=== PATIENT | female | born 1980 | race Caucasian/White ===

== ENCOUNTER 2016-09-10 19:28 | Emergency (ER) | payer MEDICAID, OTHER ==
[2016-09-10 19:48] VITALS: BP 107/69
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
== END 2016-09-10 20:50 | disposition home or self-care (01) ==
LOC: UCEAST 19:28
DX: S90.31XA Contusion of right foot, initial encounter (principal); V43.52XA Car driver injured in collision with other type car in traffic accident, initial encounter; J45.909 Unspecified asthma, uncomplicated
CPT/HCPCS: 99201; G0463

== ENCOUNTER 2016-10-01 10:26 | Emergency (ER) | payer OTHER, MEDICAID ==
[2016-10-01] MEDS ORDERED: Ketorolac INJ* 60 MG/2 ML VIAL IM ONE (11:43)
--- NOTE | 2016-10-01 11:50 | UC ---
Back Pain HPI - HPI Summary HPI Summary: Had a baby 7 days ago at [facility] no pain meds due to rapid labor. No has back pain radiating down both legs, also some pain in her neck, Lochia is small no odor, no lower abdomen pain--Spoke to her doctor who felt this is not [employer] related and so she came here - History of Current Complaint Chief Complaint: UCBackPain Stated Complaint: LOWER BACK PAIN-HAD BABY 5 DAYS Time Seen by Provider: 10/01/16 11:29 Hx Obtained From: Patient ?: No Onset/Duration: Gradual Onset - 2, Lasting Days, Still Present Timing: Constant Severity Initially: Moderate Severity Currently: Moderate Pain Intensity: 6 Pain Scale Used: 0-10 Numeric Back Pain: Is Diffuse - lwer back in to buttocks Also some neck pain Character: Aching, Stiffness Aggravating: Movement Alleviating: Nothing - took 4 aleve and 6 ibuprofen yesterday with out relief Associated Signs And Symptoms: Positive: Negative - Allergies/Home Medications Allergies/Adverse Reactions: Allergies Allergy/AdvReac Type Severity Reaction Status Date / Time No Known Allergies Allergy Verified 09/10/16 19:41 PMH/Surg Hx/FS Hx/Imm Hx Previously Healthy: Yes - 7 days post from a - Surgical History Surgical History: None - Family History Known Family History: Negative: Cardiac Disease, Hypertension, Diabetes - Social History Occupation: Unemployed Alcohol Use: None Substance Use Type: None Smoking Status (MU): Never Smoked Tobacco Review of Systems Constitutional: Chills Skin: Negative Eyes: Negative ENT: Negative Respiratory: Negative Cardiovascular: Negative Gastrointestinal: Negative Genitourinary: Negative Motor: Negative Neurovascular: Negative Musculoskeletal: Arthralgia - low back pain, Myalgia - low back pain Neurological: Negative Psychological: Negative All Other Systems Reviewed And Are Negative: Yes Physical Exam Triage Information Reviewed: Yes Appearance: Well-Appearing, No Pain Distress, Well-Nourished Vital Signs: Initial Vital Signs Temp 97.8 F 10/01/16 10:52 Pulse 75 10/01/16 10:52 Resp 18 10/01/16 10:52 BP 108/62 10/01/16 10:52 Pulse Ox 100 10/01/16 10:52 Vital Signs Reviewed: Yes Eye Exam: Normal Eyes: Positive: Conjunctiva Clear ENT Exam: Normal ENT: Positive: Normal ENT inspection, Hearing grossly normal, Pharynx normal, TMs normal. Negative: Nasal congestion, Nasal drainage, Tonsillar swelling, Tonsillar exudate, Trismus, Muffled/hoarse voice Dental Exam: Normal Neck exam: Normal Neck: Positive: Supple, Nontender Respiratory Exam: Normal Respiratory: Positive: Chest non-tender, Lungs clear, Normal breath sounds, No respiratory distress, No accessory muscle use Cardiovascular Exam: Normal Cardiovascular: Positive: RRR, No Murmur, Pulses Normal, Brisk Capillary Refill Abdominal Exam: Normal Abdomen Description: Positive: Nontender, No Organomegaly, Soft. Negative: CVA Tenderness (R), CVA Tenderness (L) Bowel Sounds: Positive: Present Musculoskeletal Exam: Normal Musculoskeletal: Positive: Strength Intact, ROM Intact, No Edema Neurological Exam: Normal Neurological: Positive: Alert, Muscle Tone Normal Psychological Exam: Normal Psychological: Positive: Normal Response To Family Skin Exam: Normal Re-Evaluation - Re-Evaluation First Eval Change: Improved - Some pain relief with Toradal---- Back Pain Course/Dx - Course Course Of Treatment: Mobic, Flexeril, warm compress, culture urine, follow this week with pcp - Differential Dx/Diagnosis Differential Diagnosis/HQI/PQRI: Herniated Disc, Renal Colic, Strain, Sprain Provider Diagnoses: MUscle strain low back - Physician Notifications Discussed Patient Care With: Dr. Mejia Time Discussed With Above Provider: 11:30 Discharge - Discharge Plan Condition: Stable Disposition: HOME Prescriptions: Cyclobenzaprine TAB* [Flexeril 10 MG TAB*] 10 mg PO TID PRN #15 tab PRN Reason: mucle pain Meloxicam(NF) [Mobic(NF)] 7.5 mg PO DAILY PRN #40 tab PRN Reason: pain Patient Education Materials: Acute Low Back Pain (ED), Core Strengthening Exercises (GEN), Lower Back Exercises (ED) Referrals: No Primary Care Phys,NOPCP [Primary Care Provider] - Additional Instructions: Follow with your primary care provider in [place] in 5-7 days. Follow immediately / go to emergency department for increasing pain, weakness, fever
[2016-10-01 12:49] VITALS: BP 112/71
== END 2016-10-01 11:35 | disposition home or self-care (01) ==
LOC: UCEAST 10:26
DX: S39.012A Strain of muscle, fascia and tendon of lower back, initial encounter (principal); X58.XXXA Exposure to other specified factors, initial encounter
CPT/HCPCS: 81003; 87086; 96372; 99212; G0463; J1885

== ENCOUNTER 2016-12-19 20:13 | Emergency (ER) | payer MEDICAID, OTHER ==
[2016-12-19 20:25] VITALS: BP 118/72
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
--- NOTE | 2016-12-19 21:03 | RAD ---
HISTORY: Left ankle pain and swelling COMPARISONS: None VIEWS: 3, Frontal, lateral, and oblique views of the left ankle FINDINGS: BONE DENSITY: Normal. BONES: There is no displaced fracture. JOINTS: There is no arthropathy. ALIGNMENT: There is no dislocation. SOFT TISSUES: Unremarkable. OTHER FINDINGS: None. IMPRESSION: NO ACUTE OSSEOUS INJURY. IF SYMPTOMS PERSIST, RECOMMEND REPEAT IMAGING.
--- NOTE | 2016-12-22 18:34 | UC ---
Progress - Progress Note Progress Note: INITIAL LYME SCREEN POSITIVE. AWAIT CONFIRMATORY WESTERN BLOT. MAY NEED TREATMENT BASED ON THOSE RESULTS. - SONDRA REDMOND MD
[2016-12-22 20:35] LABS: Lyme Disease IgG Ab WB Negative (Negative)
--- NOTE | 2016-12-23 08:43 | UC ---
Progress - Progress Note Progress Note: INITIAL LYME SCREEN POSITIVE. AWAIT CONFIRMATORY WESTERN BLOT. MAY NEED TREATMENT BASED ON THOSE RESULTS. - SONDRA REDMOND MD 12/23/16 09:37am - called pt re Lyme serology (positive) and Western blot (noted in [employer]). Called pt at home # listed, left message for her to call back. There is no pcp on file. I called work number, no extension available. We will mail results to pt., via certified mail.
== END 2016-12-19 21:12 | disposition home or self-care (01) ==
LOC: UCEAST 20:13
DX: M70.872 Other soft tissue disorders related to use, overuse and pressure, left ankle and foot (principal); Y93.9 Activity, unspecified; J45.909 Unspecified asthma, uncomplicated
CPT/HCPCS: 86617; 86618; 99212; G0463

== ENCOUNTER 2017-06-04 17:21 | Emergency (ER) | payer OTHER ==
--- NOTE | 2017-06-04 20:38 | UC ---
Respiratory Complaint HPI - HPI Summary HPI Summary: c/o cough, nasal congestion for past 2 days and since yesterday, loss of voice. Her child is ill with a virus. Denies fever and states she has some facial pressure under eyes. sometimes with d/c - History of Current Complaint Chief Complaint: UCRespiratory Stated Complaint: CONGESTED, COUGH, SORE THROAT Time Seen by Provider: 06/04/17 20:23 Hx Obtained From: Patient Hx Last Menstrual Period: 05/20 ?: No Onset/Duration: Gradual Onset, Lasting Days Timing: Constant Severity Initially: Mild Severity Currently: Mild Pain Intensity: 4 Character: Cough: Nonproductive Aggravating Factors: Nothing Alleviating Factors: Nothing Associated Signs And Symptoms: Positive: Nasal Congestion, Hoarseness, Sinus Discomfort Related History: Seasonal Allergies - Risk Factors Pulmonary Embolism Risk Factors: Negative Cardiac Risk Factors: Negative Pseudomonas Risk Factors: Negative Tuberculosis Risk Factors: Negative - Allergies/Home Medications Allergies/Adverse Reactions: Allergies Allergy/AdvReac Type Severity Reaction Status Date / Time No Known Allergies Allergy Verified 12/19/16 20:20 Home Medications: Home Medications Bupropion HCl [Wellbutrin Sr] 300 mg PO 06/04/17 [History] Cetirizine* [ZyrTEC 10 MG TAB*] 10 mg PO DAILY 06/04/17 [History Confirmed 06/04] Escitalopram (NF) [Lexapro 5 mg (NF)] 5 mg PO DAILY 06/04/17 [History Confirmed 06/04/17] PMH/Surg Hx/FS Hx/Imm Hx Previously Healthy: Yes - Surgical History Surgical History: Yes Surgery Procedure, Year, and Place: tubal ligation 2016 - Family History Known Family History: Negative: Cardiac Disease, Hypertension, Diabetes - Social History Alcohol Use: None Substance Use Type: None Smoking Status (MU): Never Smoked Tobacco Review of Systems Constitutional: Negative ENT: Nasal Discharge, Sinus Congestion Respiratory: Cough Cardiovascular: Negative All Other Systems Reviewed And Are Negative: Yes Physical Exam Triage Information Reviewed: Yes Appearance: Well-Appearing Vital Signs: Initial Vital Signs Temp 97.6 F 06/04/17 18:19 Pulse 83 06/04/17 18:19 Resp 18 06/04/17 18:19 BP 119/63 06/04/17 18:19 Pulse Ox 98 06/04/17 18:19 Vital Signs Reviewed: Yes Eye Exam: Normal ENT Exam: Normal Dental Exam: Normal Neck exam: Normal Respiratory Exam: Normal Cardiovascular Exam: Normal UC Diagnostic Evaluation - Laboratory O2 Sat by Pulse Oximetry: 98 Respiratory Course/Dx - Course Course Of Treatment: agressive hydration, avoid caffeine, saline gargles, rest voice. - Differential Dx/Diagnosis Provider Diagnoses: viral URI. laryngitis Discharge - Discharge Plan Condition: Stable Disposition: HOME Patient Education Materials: Laryngitis (ED), Viral Syndrome (ED) Referrals: No Primary Care Phys,NOPCP [Primary Care Provider] -
[2017-06-04 20:46] VITALS: BP 101/69
== END 2017-06-04 20:43 | disposition home or self-care (01) ==
LOC: UCEAST 17:21
DX: J06.9 Acute upper respiratory infection, unspecified (principal); B34.9 Viral infection, unspecified
CPT/HCPCS: 99212; G0463

== ENCOUNTER 2018-06-30 11:54 | Emergency (ER) | payer OTHER ==
[2018-06-30 12:57] VITALS: BP 116/67
--- NOTE | 2018-06-30 13:02 | UC ---
FLU HPI - HPI Summary HPI Summary: 3 days of body aches, fever reaching 104F at home. flu + sick contact at home.nothing makes it better/worse. - History of Current Complaint Chief Complaint: UCGeneralIllness Stated Complaint: FEVER COUGH Time Seen by Provider: 06/30/18 12:58 Hx Last Menstrual Period: 05/20 Pain Intensity: 6 Pain Scale Used: 0-10 Numeric Related Hx: Possible Flu/Infectious Exposure - Allergy/Home Medications Allergies/Adverse Reactions: Allergies Allergy/AdvReac Type Severity Reaction Status Date / Time No Known Allergies Allergy Verified 06/30/18 12:50 Home Medications: Home Medications Naproxen Sodium [Aleve] 220 mg PO ONCE 06/30/18 [History Confirmed 06/30/18] PMH/Surg Hx/FS Hx/Imm Hx Previously Healthy: Yes - Surgical History Surgical History: Yes Surgery Procedure, Year, and Place: partial hysterectomy (fallopian tubes removed) 2016 - Family History Known Family History: Negative: Cardiac Disease, Hypertension, Diabetes - Social History Alcohol Use: None Substance Use Type: None Smoking Status (MU): Never Smoked Tobacco - Immunization History Most Recent Influenza Vaccination: 2018 Review of Systems All Other Systems Reviewed And Are Negative: Yes Constitutional: Positive: Fever, Chills, Fatigue Skin: Negative: Rash ENT: Positive: Sore Throat, Sinus Congestion Respiratory: Positive: Cough. Negative: Shortness Of Breath Neurological: Positive: Headache. Negative: Weakness Physical Exam Triage Information Reviewed: Yes Appearance: Well-Appearing Vital Signs: Initial Vital Signs Temp 100.4 F 06/30/18 12:53 Pulse 109 06/30/18 12:53 Resp 22 06/30/18 12:53 BP 116/67 06/30/18 12:53 Pulse Ox 98 06/30/18 12:53 Vital Signs Reviewed: Yes Eyes: Positive: Conjunctiva Clear ENT: Positive: Pharynx normal, TMs normal, Uvula midline Neck exam: Normal Neck: Positive: Supple, Nontender, No Lymphadenopathy. Negative: Nuchal Rigidity Respiratory Exam: Normal Cardiovascular Exam: Normal Neurological: Positive: Alert Skin: Negative: Rashes Flu Course/Dx - Course Course Of Treatment: flu like illness x 4 days w/ a +flu expsore at home. low grade fever but otherwise vitals good. did get flu shot this yr. rapid flu + today. supportive care discussed and she wanted tamiflu. her symptoms are just shy of the recommended days but obliged. we discussed side effects of tamiflu and effectiveness. - Differential Dx/Diagnosis Differential Diagnosis/HQI/PQRI: Influenza, Upper Respiratory Infection Provider Diagnosis: Influenza Discharge - Sign-Out/Discharge Documenting (check all that apply): Patient Departure All imaging exams completed and their final reports reviewed: No Studies - Discharge Plan Condition: Good Disposition: HOME Prescriptions: Oseltamivir SUSP 75 MG dose* [Tamiflu SUSP 75 MG dose*] 75 mg PO BID 5 Days #10 oral.syrin Patient Education Materials: Influenza (ED) Forms: *Work Release Referrals: No Primary Care Phys,NOPCP [Primary Care Provider] - Additional Instructions: if not improving please follow up with primary care. - Billing Disposition and Condition Condition: GOOD Disposition: Home
[2018-06-30 13:24] LABS: Influenza A Molecular POSITIVE (Negative)
== END 2018-06-30 13:39 | disposition home or self-care (01) ==
LOC: UCEAST 11:54
DX: J11.1 Influenza due to unidentified influenza virus with other respiratory manifestations (principal)
CPT/HCPCS: 99212; G0463

== ENCOUNTER 2018-07-25 15:16 | Emergency (ER) | payer OTHER ==
[2018-07-25 15:25] VITALS: BP 119/56
--- NOTE | 2018-07-25 15:33 | UC ---
Complaint Female HPI - HPI Summary HPI Summary: 37 y/o female presents to the urgent care c/o vaginal itching w/ a white vaginal discharge for the past 2 weeks. Pt has use OTC meds with no improvement. Pt denies Hx of STD's. LMP: 07/01/2018. Pt denies taken any antibiotic recently. Pt has mild frequency on urination, but denies pelvic pain , lower back pain , flank pain or burning on urination. Pt also denies fever, SOB, chest pain, abdominal pain, N/v/d. - History Of Current Complaint Chief Complaint: UCGU Stated Complaint: PERSONAL Time Seen by Provider: 07/25/18 15:31 Hx Obtained From: Patient Hx Last Menstrual Period: 07/02/18 ?: No Onset/Duration: Gradual Onset, Lasting Weeks - 2 weeks, Still Present Timing: Constant Severity Initially: Mild Severity Currently: Moderate Pain Intensity: 0 Pain Scale Used: 0-10 Numeric Character: Not Applicable Aggravating Factor(s): [place], Urination Associated Signs And Symptoms: Positive: Vaginal Discharge. Negative: Fever, Back Pain, Nausea, Vomiting(# Of Episodes =), Genital Swelling, Genital Blisters - Risk Factors Ectopic Risk Factor: Negative Ovarian Torsion Risk Factor: Negative - Allergies/Home Medications Allergies/Adverse Reactions: Allergies Allergy/AdvReac Type Severity Reaction Status Date / Time No Known Allergies Allergy Verified 07/25/18 15:26 PMH/Surg Hx/FS Hx/Imm Hx Previously Healthy: Yes Respiratory History: Asthma - Surgical History Surgical History: Yes Surgery Procedure, Year, and Place: partial hysterectomy (fallopian tubes removed) 2017 - Family History Known Family History: Positive: Cardiac Disease, Hypertension, Diabetes - Social History Occupation: Employed Full-time Lives: With Family Alcohol Use: None Substance Use Type: None Smoking Status (MU): Never Smoked Tobacco - Immunization History Most Recent Influenza Vaccination: 2018 Review of Systems All Other Systems Reviewed And Are Negative: Yes Constitutional: Positive: Negative Skin: Positive: Negative Eyes: Positive: Negative ENT: Positive: Negative Respiratory: Positive: Negative Cardiovascular: Positive: Negative Genitourinary: Positive: Frequency, Vaginal/Penile Itching, Vaginal/Penile Discharge - white Motor: Positive: Negative Neurovascular: Positive: Negative Musculoskeletal: Positive: Negative Neurological: Positive: Negative Psychological: Positive: Negative Is Patient Immunocompromised?: No Physical Exam - Summary Physical Exam Summary: Vital signs: reviewed General: well developed, well nourished female sitting in the examining table w /o any acute distress. Head: Normocephalic, no lesions. Eyes: PERRLA, EOM's full, conjunctiva clear, fundi grossly normal. Ears: EAC's clear, TM's normal. Nose: Mucosa normal, no obstruction. Throat: Clear, no exudates, no lesions. Neck: Supple, no masses, no thyromegaly, no bruits. Chest: Lungs clear, no rales, no rhonchi, no wheezes. Heart: RR, no murmurs, no rubs, no gallops. Abdomen: Soft, no tenderness, no masses, BS normal. Pelvic: I was assisted by nurse Karina: External genitalia within normal limits. There is no lesions there is no masses noted. Speculum exam: The vaginal bettencourt are within normal limits w/ cottage cheese vaginal discharge, no the lesions or rashes. The cervix is closed with no lesions or masses. There is no CMT's, and no adnexal masses. Sample sent to Lab for G/C and Affirm panel. Rectal: No lesions, no hemorrhoids, Back: Normal curvature, no tenderness. Extremities: FROM, no deformities, no edema, no erythema. Neuro: Physiological, no localizing findings. Skin: Normal, no rashes, no lesions noted. Triage Information Reviewed: Yes Vital Signs: Initial Vital Signs Temp 98 F 07/25/18 15:22 Pulse 88 07/25/18 15:22 Resp 18 07/25/18 15:22 BP 119/56 07/25/18 15:22 Pulse Ox 99 07/25/18 15:22 Complaint Female Dx - Course Course Of Treatment: 37 y/o female presents to the urgent care c/o vaginal itching w/ a white vaginal discharge for the past 2 weeks. Pt has use OTC meds with no improvement. Pt denies Hx of STD's. LMP: 07/01/2018. Pt denies taken any antibiotic recently. Pt has mild frequency on urination, but denies pelvic pain , lower back pain , flank pain or burning on urination. Pt also denies fever, SOB, chest pain, abdominal pain, N/v/d. Hx obtained. Pelvic exam I was assisted by nurse Collins.Pt w/ a white cottage cheese vaginal discharge on pelvic examination. Pt w/ probably Vulvovaginal Candidiasis. Pt Rx Clotrimazole vaginal cream as directed below.Sample sent to Lab for Affirm and GC/chlamydia to screen for STD's and to r/o any abnormality . pt will be notified of result. UA: negative. Advised to f/u her appt w/ TOOL ROOM SUPERVISOR or PCP if not improvement of symptoms.D/C instructions explained. Pt understood and agreed with plan of care. - Differential Dx/Diagnosis Differential Diagnosis/HQI/PQRI: Cervicitis, Pelvic Inflammatory Disease, Renal Colic, Sexually Transmitted Disease, Ureteral Stone, Urinary Tract Infection Provider Diagnosis: Vulvovaginal candidiasis, Screening for STD (sexually transmitted disease) Discharge - Sign-Out/Discharge Documenting (check all that apply): Patient Departure - d/c home All imaging exams completed and their final reports reviewed: No Studies - Discharge Plan Condition: Stable Disposition: HOME Prescriptions: Clotrimazole 1% VAGINAL CREAM* [Gyne-Lotrimin 1% VAGINAL CREAM*] 1 applic VAGINAL BEDTIME #1 ambar Patient Education Materials: Yeast Infection (ED) Referrals: [facility] [Outside] - 3 Days Additional Instructions: 1- Please apply Clotrimazole vaginal cream as directed to alleviate Vulvovaginal Candidiasis. 2- Specimen were sent to lab, if anything abnormal you will receive a call from us for further treatment. 3-If not improvement of symptoms please return to the urgent care or f/u with your TOOL ROOM SUPERVISOR for further treatment - Billing Disposition and Condition Condition: STABLE Disposition: Home
--- NOTE | 2018-07-26 15:37 | UC ---
- Progress Note Progress Note: Vaginal culture positive for BV (gardnerella) rx sent for flagyl 500mg BID x7days Course/Dx - Diagnoses Provider Diagnoses: Vulvovaginal candidiasis, Screening for STD (sexually transmitted disease) Discharge - Sign-Out/Discharge Documenting (check all that apply): Post-Discharge Follow Up All imaging exams completed and their final reports reviewed: No Studies - Discharge Plan Condition: Stable Disposition: HOME Prescriptions: Clotrimazole 1% VAGINAL CREAM* [Gyne-Lotrimin 1% VAGINAL CREAM*] 1 applic VAGINAL BEDTIME #1 ambar metroNIDAZOLE [Flagyl] 500 mg PO BID #14 tablet Patient Education Materials: Yeast Infection (ED) Referrals: [facility] [place] [facility] [[facility]] - 3 Days Additional Instructions: 1- Please apply Clotrimazole vaginal cream as directed to alleviate Vulvovaginal Candidiasis. 2- Specimen were sent to lab, if anything abnormal you will receive a call from us for further treatment. 3-If not improvement of symptoms please return to the urgent care or f/u with your PASSENGER SERVICE MANAGER for further treatment - Billing Disposition and Condition Condition: STABLE Disposition: Home
[2018-07-27 10:42] LABS: Neisseria gonorrhoeae (GC) RNA Negative (Negative)
[2018-07-27 10:46] LABS: Trichomonas vaginalis Result Negative (Negative)
== END 2018-07-25 16:29 | disposition home or self-care (01) ==
LOC: UCEAST 15:16
DX: B37.3 Candidiasis of vulva and vagina (principal); Z11.3 Encounter for screening for infections with a predominantly sexual mode of transmission; J45.909 Unspecified asthma, uncomplicated
CPT/HCPCS: 81003; 84702; 87480; 87491; 87510; 87591; 87661; 99212; G0463

== ENCOUNTER 2018-08-17 15:54 | Emergency (ER) | payer OTHER ==
[2018-08-17 16:23] VITALS: BP 114/74
--- NOTE | 2018-08-17 16:38 | UC ---
Lower Extremity/Ankle HPI - HPI Summary HPI Summary: 38-year-old female presents with complaints of left second toe pain that started today. States she has noted some mild redness at the base of the toe. Pain worsens with walking and weightbearing. Denies injury, numbness, or tingling. - History of Current Complaint Chief Complaint: UCLowerExtremity Stated Complaint: TOE INJURY Time Seen by Provider: 08/17/18 16:32 Hx Obtained From: Patient Hx Last Menstrual Period: 3 weeks Pain Intensity: 5 - Allergies/Home Medications Allergies/Adverse Reactions: Allergies Allergy/AdvReac Type Severity Reaction Status Date / Time No Known Allergies Allergy Verified 08/17/18 16:23 PMH/Surg Hx/FS Hx/Imm Hx Previously Healthy: Yes Psychological History: Depression - Surgical History Surgical History: Yes Surgery Procedure, Year, and Place: partial hysterectomy (fallopian tubes removed) 2016 - Family History Known Family History: Positive: Cardiac Disease, Hypertension, Diabetes - Social History Occupation: Employed Full-time Lives: Alone Alcohol Use: None Substance Use Type: None Smoking Status (MU): Never Smoked Tobacco - Immunization History Most Recent Influenza Vaccination: 2018 Review of Systems All Other Systems Reviewed And Are Negative: Yes Constitutional: Negative: Fever, Chills Skin: Positive: Other - Erythema. Negative: Bruising Respiratory: Positive: Negative Cardiovascular: Positive: Negative Gastrointestinal: Positive: Negative Genitourinary: Positive: Negative Motor: Negative: Decreased ROM Neurovascular: Negative: Decreased Sensation Musculoskeletal: Positive: Arthralgia - See HPI Neurological: Positive: Negative Is Patient Immunocompromised?: No Physical Exam - Summary Physical Exam Summary: GENERAL APPEARANCE: Well developed, well nourished, alert and cooperative, and appears to be in no acute distress. CARDIAC: Normal S1 and S2. No S3, S4 or murmurs. Rhythm is regular. There is no peripheral edema, cyanosis or pallor. Extremities are warm and well perfused. Capillary refill is less than 2 seconds. Peripheral pulses intact. LUNGS: Clear to auscultation without rales, rhonchi, wheezing or diminished breath sounds. ABDOMEN: Positive bowel sounds. Soft, nondistended, nontender. No guarding or rebound. No masses or hepatosplenomegally. MUSKULOSKELETAL: Normal muscular development. Limping gait. EXTREMITIES: Erythema and tenderness over the MTP of the second toe of the left foot. No gross deformity noted. Circulation sensation intact. SKIN: Skin normal color, texture and turgor. Triage Information Reviewed: Yes Vital Signs: Initial Vital Signs Temp 98 F 08/17/18 15:59 Pulse 77 08/17/18 15:59 Resp 16 08/17/18 15:59 BP 114/74 08/17/18 15:59 Pulse Ox 100 08/17/18 15:59 Vital Signs Reviewed: Yes Diagnostics - Radiology No standard instances Radiology Interpretation Completed By: Radiologist Summary of Radiographic Findings: Patient Name: CHAPITO ALEXANDRA Medical Record#: [id number]. Ordering Physician: Jonnie Teran NP Acct.#: [id number]. : 1980 Age: 38 Sex: F Location: [facility]. Exam Date: 160 ADM Status: REG ER. Order Information: TOE LEFT 2ND. Accession Number: [id number]. CPT: 14699. Indication: Left second digit pain. 3 views of left second digit demonstrates no fracture. No other bone or joint abnormality is identified. IMPRESSION: No fracture of the left second toe is noted. Lower Extremity Course/Dx - Course Course Of Treatment: 38-year-old female presents with complaints of left second toe pain that started today. States she has noted some mild redness at the base of the toe. Pain worsens with walking and weightbearing. Denies injury, numbness, or tingling. Afebrile. Vital signs stable. Exam remarkable for erythema and tenderness over the MTP of the second toe of the left foot. No gross deformity noted. Circulation sensation intact. X-ray showed no acute fracture or dislocation. Recommending conservative treatment for some arthralgia of indeterminate cause including over the counter NSAIDs and RICE. She was provided postop shoe for support. She is to follow-up with her primary care provider in 7 days if symptoms do not improve. Anticipatory guidance and warning symptoms were reviewed with the patient. Verbalized understanding and agrees with plan of care. - Differential Dx/Diagnosis Differential Diagnosis/HQI/PQRI: Contusion, Dislocation, Fracture (Closed), Gout , Sprain, Tendonitis Provider Diagnosis: Toe pain, left Discharge - Sign-Out/Discharge Documenting (check all that apply): Patient Departure All imaging exams completed and their final reports reviewed: Yes - Discharge Plan Condition: Stable Disposition: HOME Patient Education Materials: Arthralgia (ED) Referrals: No Primary Care Phys,NOPCP [Primary Care Provider] - Additional Instructions: The x-ray of your toe performed in the clinic today showed no evidence of a fracture. Your exam is consistent with some inflammation of the toe joint of an unknown cause. Rest the foot as much as possible. Use the postop shoe that was provided to you the next several days until your pain free. You may remove this to shower and for sleeping but should wear any time you are up and walking. Apply some ice to the affected area for 15-20 minutes at least 4 times a day. Keep the foot elevated while sitting to help reduce any swelling. Take ibuprofen (Advil, Motrin) or naproxen (Aleve) according to directions as needed for pain. Follow-up with your primary care provider in 7 days if symptoms do not improve. Seek immediate medical attention in the emergency room if you have severe pain that is not managed with pain medication, you're unable to walk or bear weight on the foot, he developed any numbness or tingling in the foot or toes, or have any worsening of symptoms. - Billing Disposition and Condition Condition: STABLE Disposition: Home
== END 2018-08-17 16:55 | disposition home or self-care (01) ==
LOC: UCEAST 15:54
DX: M79.675 Pain in left toe(s) (principal)
CPT/HCPCS: 99212; G0463

== ENCOUNTER 2018-09-17 07:45 | Emergency (ER) | payer OTHER ==
[2018-09-17 07:56] VITALS: BP 109/65
--- NOTE | 2018-09-17 08:43 | UC ---
Respiratory Complaint HPI - HPI Summary HPI Summary: started 3 day sago with cough and ST, coughing so hard her "pelvis" muscles hurt when she coughs. is taking mucinex but not helping - History of Current Complaint Chief Complaint: UCRespiratory Stated Complaint: SORE THROAT/COUGH Time Seen by Provider: 09/17/18 08:02 Hx Obtained From: Patient Hx Last Menstrual Period: 08/20/18 ?: No Onset/Duration: Gradual Onset Timing: Intermittent Episodes Severity Initially: Mild Severity Currently: Moderate Pain Intensity: 6 Aggravating Factors: Exertion, Deep Breaths Alleviating Factors: Nothing Associated Signs And Symptoms: Negative: Fever, Chills, Wheezing, Hemoptysis, Dizziness - Allergies/Home Medications Allergies/Adverse Reactions: Allergies Allergy/AdvReac Type Severity Reaction Status Date / Time No Known Allergies Allergy Verified 09/17/18 07:51 PMH/Surg Hx/FS Hx/Imm Hx Previously Healthy: Yes Psychological History: Anxiety, Depression - Surgical History Surgical History: Yes Surgery Procedure, Year, and Place: partial hysterectomy (fallopian tubes removed) 2016. tonsils & adenoids - Family History Known Family History: Positive: Cardiac Disease, Hypertension, Diabetes - Social History Occupation: Employed Full-time - [employer] Lives: With Family Alcohol Use: None Substance Use Type: None Smoking Status (MU): Never Smoked Tobacco - Immunization History Most Recent Influenza Vaccination: 2018 Review of Systems All Other Systems Reviewed And Are Negative: Yes Constitutional: Positive: Negative Skin: Positive: Negative. Negative: Rash Eyes: Positive: Negative ENT: Positive: Sore Throat. Negative: Ear Ache, Sinus Pain/Tenderness Respiratory: Positive: Cough. Negative: Shortness Of Breath Cardiovascular: Positive: Negative Gastrointestinal: Positive: Negative Musculoskeletal: Positive: Negative Neurological: Positive: Negative. Negative: Headache Psychological: Positive: Negative Is Patient Immunocompromised?: No Physical Exam Triage Information Reviewed: Yes Appearance: Well-Appearing, No Pain Distress, Well-Nourished Vital Signs: Initial Vital Signs Temp 98.9 F 09/17/18 07:51 Pulse 92 09/17/18 07:51 Resp 16 09/17/18 07:51 BP 109/65 09/17/18 07:51 Pulse Ox 99 09/17/18 07:51 Vital Signs Reviewed: Yes Eyes: Positive: Conjunctiva Clear ENT: Positive: TMs normal, Other - pharyggeal irritation. Negative: Nasal congestion Neck exam: Normal Neck: Positive: Supple, No Lymphadenopathy Respiratory Exam: Normal Respiratory: Positive: Lungs clear, Other: - frequent dry deep cough Cardiovascular Exam: Normal Musculoskeletal Exam: Normal Neurological Exam: Normal Psychological Exam: Normal Skin Exam: Normal Respiratory Course/Dx - Differential Dx/Diagnosis Differential Diagnosis/HQI/PQRI: Influenza, Lower Resp Infection, Sinusitis, Other - bronchitis Provider Diagnosis: Bronchitis Discharge - Sign-Out/Discharge Documenting (check all that apply): Patient Departure All imaging exams completed and their final reports reviewed: No Studies - Discharge Plan Condition: Good Disposition: HOME Prescriptions: Azithromycin TAB* [Zithromax TAB (Z-CAROL) 250 mg #6 tabs] 2 tab PO .TODAY, THEN 1 DAILY #1 carol Benzonatate CAP* [Tessalon 100 MG CAP*] 100 mg PO TID #12 cap Patient Education Materials: Acute Bronchitis (ED) Referrals: No Primary Care Phys,NOPCP [Primary Care Provider] - Additional Instructions: rest and drink plenty of fluids use antibiotic and cough medication as prescribed return if no better 3 days or if worsen at any time - Billing Disposition and Condition Condition: GOOD Disposition: Home
== END 2018-09-17 09:15 | disposition home or self-care (01) ==
LOC: UCEAST 07:45
DX: J40 Bronchitis, not specified as acute or chronic (principal)
CPT/HCPCS: 99212; G0463